=== PATIENT | male | born 1955 | race Caucasian/White ===

== ENCOUNTER → 2016-07-13 | Day surgery (SDC) | payer OTHER ==
[~2016-07-13] MED LIST: ACETAMINOPHEN/HYDROcodone 325 MG/5 MG TAB ONE; BUPIVACAINE/EPINEPHRINE 0.25% 50 ML VIAL ONE; KETOROLAC TROMETHAMINE 30 MG/ML (IVP) VIAL IV PUSH ONE; LACTATED RINGER'S 1000 ML INJ 1,000 ML ONE; MEPERIDINE HCL 25 MG/ML VIAL ONE; MIDAZOLAM HCL 2 MG/2 ML VIAL ONE; ONDANSETRON HCL 4 MG/2 ML VIAL IV PUSH ONE; PANT40TA3 PO; PROPOFOL 200 MG/20 ML AMP IV ONE; TRAM50TA PO; ceFAZolin 2 GM PREMIX 50 ML ONE
--- NOTE | 2016-07-13 14:26 | TN ---
cc: BENNY WESTBROOK M.D. Corrected: 07/25/2016 DATE OF SURGERY: 07/13/2016 PREOPERATIVE DIAGNOSIS 1. Symptomatic right inguinal hernia 2. Status post exploratory laparotomy for appendectomy. POSTOPERATIVE DIAGNOSIS: 1. Symptomatic right inguinal hernia 2. Status post exploratory laparotomy for appendectomy. 3. Indirect right inguinal hernia. PROCEDURE PERFORMED Laparoscopic right inguinal hernia repair with mesh. SURGEON Benny Westbrook MD. BEATER ENGINEER HELPER: KADIE Lockwood ANESTHESIA General LMA general endotracheal COMPLICATIONS None. INDICATIONS FOR PROCEDURE: Mr. Gagnon is a pleasant 61-year-old gentleman who had a symptomatic fairly large right inguinal hernia. He has seen evaluate the office. The patient requested laparoscopic repair. The patient does have a history of periumbilical midline incision from a appendectomy. I advised him that we would attempt laparoscopic but it may have to be opened due to peritoneal scarring. The patient expressed understanding. Risks and benefits of the procedure were discussed with him in detail. He was agreeable. Details the patient was identified, brought to the operating placed supine on the table. After adequate general anesthesia achieved the abdomen was prepped and draped in standard surgical fashion. 0.25% Marcaine injected skin and subcutaneous tissue in the periumbilical space. Periumbilical incision was then made. Dissection was carried down subcutaneous tissue. The anterior rectus fascia. Anterior rectus fascia incised vertically. Rectum muscles retracted laterally and the preperitoneal space was entered blunt finger dissection. Blunt dissecting balloon was inserted and informed insufflated with 15 pounds of air under direct vision on the right side of the pelvis. We could visualize the rectus muscle knowingly were in the correct space. The balloon was then removed and the balloon trocar inserted. Preperitoneal space insufflated to 11 mmHg using CO2 gas. Two 5 mm trocars were placed in the lower midline under direct vision. Attention was directed to the pubic symphysis which was easily identified. Dissection then proceeded out laterally identifying the cord structures exiting the internal ring. There was no evidence of a direct inguinal hernia. Traveling with the cord structures was a very large cord lipoma which was reduced out of the inguinal canal. The patient is also had a very low large hernia sac. Hernia sac was carefully dissected out. The hernia sac went on for quite some time. We elected to transected. Hernia sac was then transected with sharp dissection. Hernia sac was then dissected back. The whole in the hernia sac was then closed with Endoloops x2. Once this was accomplished a posterior window was made behind the cord structures. A piece polypropylene mesh was inserted with a slit cut for the cord structures. Mesh was placed through the posterior window and in the slit reapproximated around the cord structures using pro tacking device. Mesh then secured medially at Wei's ligament pubic tubercle and superior along the posterior abdominal wall fascia. With this the indirect spaces well covered by mesh. Onlay mesh was then placed over the first mesh in order to cover the slit. This mesh was secured medially and laterally. Once we did this the inguinal floor was completely covered with mesh. Mesh was photographed in place. Peritoneal rent was checked and there was no evidence of bowel or any other abdominal intra-abdominal structures coming out were we had repaired the peritoneum. Preperitoneal space was then injected core percent Marcaine. Inferior border of mesh was then held down the preperitoneal space was desufflated and peritoneum was seen to roll up over the mesh. I intra-abdominal gas was removed by direct pressure and also the by anesthesia. All ports removed under direct vision. The anterior abdominal wall fascia was closed with 0 Vicryl in [id number] fashion. Skin was closed with 4-0 Vicryl. The patient tolerated she well as awakened, brought to recovery in stable condition. MD TERESA Frazier/toño /1:30 PM /11:22 AM
== END | disposition home or self-care (01) ==
LOC: ESDC 10:49
PROVIDERS: ATTEND Surgery Trauma Surgery
DX: K40.90 Unilateral inguinal hernia, without obstruction or gangrene, not specified as recurrent (principal)
CPT/HCPCS: 00840; 49650; C1727; C1781; J0690; J1885; J2175; J2250; J2405; J3010; J7120